=== PATIENT | female | born 1960 | race Caucasian/White ===

== ENCOUNTER 2023-11-15 06:10 | Day surgery (SDC) | payer OTHER, SELFPAY ==
[2023-11-10 08:36] VITALS: BMI 35.2
[2023-11-10 09:00] LABS: Hematocrit 41.8 % (37.0-47.0); Hemoglobin 14.3 g/dL (12.0-16.0); Mean Corp Hgb Conc. 34.2 g/dL (33.0-37.0); Mean Corpuscular Volume 93.5 fL (81.0-99.0); Mean Platelet Volume 12.4 fL (7.4-10.4); Platelet Count 224 10^3/uL (130-400); Red Blood Cell Count 4.47 10^6/uL (4.20-5.40); White Blood Cell Count 7.2 10^3/uL (4.8-10.8)
[2023-11-10 09:26] LABS: ALT (SGPT) 25 U/L (0-35); AST (SGOT) 24 U/L (14-36); Albumin 4.5 g/dl (3.5-5.0); Alkaline Phosphatase 59 U/L (38-126); Blood Urea Nitrogen 15 mg/dl (7-17); Calcium 9.4 mg/dl (8.4-10.2); Carbon Dioxide 26 mmol/L (22-30); Chloride 106 mmol/L (98-107); Estimated Creatinine Clearance 89 ml/min; Glucose 117 mg/dl (70-99); Potassium 4.4 mmol/L (3.5-5.1); Sodium 144 mmol/L (135-145); Total Bilirubin 0.3 mg/dl (0.2-1.3); eGFR > 60.00
[2023-11-15 06:30] VITALS: BP 128/59
[2023-11-15 06:48] LABS: Glucose - Point of Care 133 mg/dl (70-99)
[2023-11-15] MEDS: NORMOSOL-R/PLASMALYTE-A 1000 IV (06:48)
[2023-11-15 06:56] VITALS: BMI 35.2
[2023-11-15 08:15] VITALS: BP 99/45
[2023-11-15 08:19] VITALS: BP 101/54
[2023-11-15 08:30] VITALS: BP 97/44
[2023-11-15 08:45] VITALS: BP 111/58
[2023-11-15] MEDS: MOTRIN 600 MG PO (08:55)
== END 2023-11-15 09:00 | disposition home or self-care (01) ==
LOC: SDS 06:10
PROVIDERS: ATTENDING PHYSICIAN Surgery; FAMILY PHYSICIAN Family Medicine
DX: K64.2 Third degree hemorrhoids (principal); K64.4 Residual hemorrhoidal skin tags
CPT/HCPCS: 46255; 88304; 36415; 80053; 82962; 85027; 93005